=== PATIENT | female | born 1985 | race African-American/Black ===

== ENCOUNTER 2016-10-26 18:34 | Inpatient (IN) | payer OTHER ==
[2016-10-26 19:18] VITALS: BMI 23.7
--- NOTE | 2016-10-26 19:54 | HP ---
CIWA Score - CIWA Score Nausea/Vomitin Muscle Tremors: 3 Anxiety: 3 Agitation: 3 Paroxysmal Sweats: 2 Orientation: 0-Oriented Tacttile Disturbances: 2-Mild Itch/Numbness/Burn Auditory Disturbances: 2-Mild Harshness/Frighten Visual Disturbances: 2-Mild Sensitivity Headache: 2-Mild CIWA-Ar Total Score: 22 Admission ROS BHS - HPI Chief Complaint: i need help to stop drinking alcohol and cocaine Allergies/Adverse Reactions: Allergies Allergy/AdvReac Type Severity Reaction Status Date / Time No Known Allergies Allergy Verified 10/26/16 19:49 History of Present Illness: this 31 years old female with alcohol dependence and cocaine dependence,seeking detox,last treatment [facility] for 1year discharge 05/13 multiple admissions in detox nicotine dependence anxiety and depression longest period of sobriety 2 years Exam Limitations: No Limitations - Ebola screening Have you been sick,other than usual withdrawal symptoms: Yes - Review of Systems Constitutional: Loss of Appetite, Malaise, Night Sweats, Changes in sleep, Weakness, Unintentional Wgt. Loss EENT: reports: Nose Congestion Respiratory: reports: No Symptoms reported Cardiac: reports: No Symptoms Reported GI: reports: Diarrhea, Nausea, Vomiting, Abdominal cramping : reports: No Symptoms Reported Musculoskeletal: reports: Back Pain, Muscle Pain Integumentary: reports: Dryness Neuro: reports: Headache, Tremors Endocrine: reports: No Symptoms Reported Hematology: reports: No Symptoms Reported Psychiatric: reports: No Sypmtoms Reported, Judgement Intact, Mood/Affect Appropiate, Anxious, Depressed Patient History - Patient Medical History Hx Anemia: Yes (non compliance with iron) Hx Asthma: No Hx Chronic Obstructive Pulmonary Disease (COPD): No Hx Cancer: No Hx Cardiac Disorders: No Hx Congestive Heart Failure: No Hx Hypertension: No Hx Hypercholesterolemia: No Hx Pacemaker: No HX Cerebrovascular Accident: No Hx Seizures: No Hx Dementia: No Hx Diabetes: No Hx Gastrointestinal Disorders: No Hx Liver Disease: No Hx Genitourinary Disorders: No Hx Sexually Transmitted Disorders: No Hx Renal Disease (ESRD): No Hx Thyroid Disease: No Hx Human Immunodeficiency Virus (HIV): No (last 10/10 negative) Hx Hepatitis C: No Hx Depression: Yes (anxiety) Hx Suicide Attempt: No Hx Bipolar Disorder: No Hx Schizophrenia: No Other Medical History: no suicidal,o homicidal - Patient Surgical History Hx Section: Yes (x 3,last 2011) - PPD History Previous Implant?: Yes Documented Results: Negative w/o proof Implanted On Prior [facility] Admission?: No PPD to be Administered?: Yes - Reproductive History Patient is a Female of Child Bearing Age (11 -55 yrs old): Yes Last Menstrual Period: 10/21/16 Patient : No - Smoking Cessation Smoking history: Current every day smoker Have you smoked in the past 12 months: Yes If you are a former smoker, when did you quit?: 20 Cigars Per Day: 0 Hx Chewing Tobacco Use: No Initiated information on smoking cessation: Yes 'Breaking Loose' booklet given: 10/26/16 - Substance & Tx. History Hx Alcohol Use: Yes Hx Substance Use: Yes Substance Use Type: Alcohol, Cocaine Hx Substance Use Treatment: Yes ([facility] discharge 05/13) - Substances Abused Alcohol Route: Oral Frequency: Daily Amount used: 1pint of vodka/5 of 12 ozs of beer Age of first use: 13 Date of Last Use: 10/25/16 Cocaine Route: Smoking Frequency: 3-6 times per week Amount used: 100$ Age of first use: 22 Date of Last Use: 10/25/16 Family Disease History - Family Disease History Family History: Denies Admission Physical Exam [facility] - Vital Signs Vital Signs: Vital Signs - 24 hr 10/26/16 19:12 Temperature 97.8 F Pulse Rate 83 Respiratory 18 Rate Blood Pressure 135/73 - Physical General Appearance: Yes: Moderate Distress, Tremorous, Sweating, Anxious HEENTM: Yes: Normal ENT Inspection, FILEMON, Pharynx Normal Respiratory: Yes: Lungs Clear, Normal Breath Sounds, No Respiratory Distress Neck: Yes: Within Normal Limits, Supple, Trachea in good position Breast: Yes: Breast Exam Deferred Cardiology: Yes: Regular Rhythm, Regular Rate, S1, S2 Abdominal: Yes: Within Normal Limits, Normal Bowel Sounds, Non Tender, Flat, Soft Genitourinary: Yes: Within Normal Limits Back: Yes: Normal Inspection, Muscle Spasm Musculoskeletal: Yes: full range of Motion, Back pain, Muscle Pain Extremities: Yes: Tremors Neurological: Yes: Within Normal Limits, buffet waiter/waitress II-XII NML intact, Fully Oriented, Alert, Motor Strength 5/5 Integumentary: Yes: Dry Lymphatic: Yes: Within Normal Limits - Diagnostic (1) Alcohol dependence with uncomplicated withdrawal Current Visit: Yes Status: Acute (2) Cocaine dependence Current Visit: Yes Status: Acute (3) Anxiety and depression Current Visit: Yes Status: Acute (4) Nicotine dependence Current Visit: Yes Status: Acute (5) Anemia Current Visit: Yes Status: Acute (6) Vaginitis Current Visit: Yes Status: Acute Cleared for Admission [facility] - Detox or Rehab [facility] Level of Care: Medically Managed Detox Regimen/Protocol: Librium [facility] Breath Alcohol Content Breath Alcohol Content: 0 Urine Pregancy Test - Result Urine Test Results: Negative- NO Line Present Urine Drug Screen - Results Drug Screen Negative: No Urine Drug Screen Results: LUCA-Cocaine, BZO-Benzodiazepines
[2016-10-26] MEDS ORDERED: LOPERAMIDE HCL 2 MG CAPSULE PO PRN (21:18)
[2016-10-26] MEDS ORDERED: MENTHOL/PHENOL 1 EACH UD MM PRN (21:18)
[2016-10-26] MEDS ORDERED: hydrOXYzine PAMOATE 50 MG CAPSULE (FP) PO PRN (21:18)
[2016-10-26] MEDS ORDERED: ACETAMINOPHEN 325 MG TABLET (FP) PO PRN (21:18)
[2016-10-26] MEDS ORDERED: diphenhydrAMINE HCL 50 MG CAPSULE PO PRN (21:18)
[2016-10-26] MEDS ORDERED: MAG HYDROX/AL HYDROX/SIMETH 30 ML UNIT-DOSE CUP PO PRN (21:18)
[2016-10-26] MEDS ORDERED: chlordiazePOXIDE HCL 25 MG CAPSULE PO PRN (21:18)
[2016-10-26] MEDS ORDERED: guaiFENesin/D-METHORPHAN HB 10 ML UNIT-DOSE CUPS PO PRN (21:18)
[2016-10-26] MEDS ORDERED: MAGNESIUM CITRATE 300 ML BOTTLE PO PRN (21:18)
[2016-10-26] MEDS ORDERED: P-EPHED 60MG/TRIPROLIDI 2.5MG TABLET PO PRN (21:18)
[2016-10-26] MEDS: THIAMINE HCL 100 MG TABLET (FP) PO SCH (21:48)
[2016-10-26] MEDS: chlordiazePOXIDE HCL 25 MG CAPSULE PO SCH (22:22)
[2016-10-26 23:10] LABS: URINE APPEARANCE CLEAR; URINE BILIRUBIN NEGATIVE (NEGATIVE); URINE BLOOD NEGATIVE (NEGATIVE); URINE COLOR LTYELLOW; URINE GLUCOSE (UA) NEGATIVE (NEGATIVE); URINE KETONE NEGATIVE (NEGATIVE); URINE LEUK ESTERASE TRACE (NEGATIVE); URINE NITRITE NEGATIVE (NEGATIVE); URINE PROTEIN NEGATIVE (NEGATIVE); URINE UROBILINOGEN NEGATIVE mg/dL (0.2-1.0)
[2016-10-26 23:21] LABS: URINE MUCUS RARE; URINE RBC 1 /hpf (0-3); URINE WBC 2 /hpf (3-5)
[2016-10-27] MEDS: chlordiazePOXIDE HCL 25 MG CAPSULE PO SCH ×4 (05:42→22:41)
[2016-10-27] MEDS: IBUPROFEN 400 MG TABLET (FP) PO PRN (06:20)
--- NOTE | 2016-10-27 09:39 | CONSULT ---
[facility] Psychiatric Consult - Data Date of interview: 10/27/16 Admission source: [facility] Identifying data: This is 31 years old male with psychiatric hospitalization history intoxicated with: Alcohol, Cocaine and Nicotine Substance Abuse History: Smoking history: Current every day smoker. Have you smoked in the past 12 months: Yes. If you are a former smoker, when did you quit?: 20. Cigars Per Day: 0. Hx Chewing Tobacco Use: No. Initiated information on smoking cessation: Yes. 'Breaking Loose' booklet given: . - Substance & Tx. History. Hx Alcohol Use: Yes. Hx Substance Use: Yes. Substance Use Type: Alcohol, Cocaine. Hx Substance Use Treatment: Yes ( [facility] discharge 05/13). - Substances Abused. Alcohol. Route: Oral. Frequency: Daily. Amount used: 1pint of vodka/5 of 12 ozs of beer. Age of first use: 13. Date of Last Use: 10/25/16. Cocaine. Route: Smoking. Frequency: 3-6 times per week. Amount used: 100$. Age of first use: 22. Date of Last Use: 10/25/16 Medical History: Anemia history Psychiatric History: Patient reports unclear past psychiatric history, reports moist recent psychiatric admission on about 1 month ago at [facility] due to depression, denies suicidal history, patient minimizing past psychiatric history, reports taking prior to admission: Risperdal 1mg po bid. Benadryl 50mg po bid Physical/Sexual Abuse/Trauma History: Denies, unclear Additional Comment: Risperdal 1mg po bid. Benadryl 50mg po bid Mental Status Exam - Mental Status Exam Alert and Oriented to: Person Cognitive Function: Fair Patient Appearance: Unkempt Mood: Sad Affect: Flat Patient Behavior: Sedated Speech Pattern: Delayed Voice Loudness: Mildly Soft/Quiet Thought Process: Circumstantial Thought Disorder: Being Controlled Hallucinations: Denies Suicidal Ideation: Denies Homicidal Ideation: Denies Insight/Judgement: Fair Sleep: Difficulty falling asleep Appetite: Weight loss Muscle strength/Tone: Mild Hypotonicity Gait/Station: Shuffling Additional Comments: Risperdal 1mg po bid. Benadryl 50mg po bid Psychiatric Findings - Problem List ([place] 1, 2,3) (1) Alcohol dependence with uncomplicated withdrawal Current Visit: Yes Status: Acute (2) Anxiety and depression Current Visit: Yes Status: Acute (3) Cocaine dependence Current Visit: Yes Status: Acute (4) Nicotine dependence Current Visit: Yes Status: Acute (5) Drug-induced mood disorder Current Visit: Yes Status: Acute (6) Psychotic disorder Current Visit: Yes Status: Suspected - Initial Treatment Plan Initial Treatment Plan: Risperdal 1mg po bid. Benadryl 50mg po bid
[2016-10-27] MEDS ORDERED: FERROUS SO4 325 MG TABLET (FP) PO SCH (10:00)
[2016-10-27 10:01] LABS: MCH 21.8 pg (25.7-33.7); MCHC 29.4 g/dl (32.0-36.0); MEAN CELL VOLUME 73.9 fl (80-96); PLATELET COUNT 256 K/MM3 (134-434); WHITE BLOOD COUNT 4.1 K/mm3 (4.0-10.0)
[2016-10-27 10:09] LABS: ALBUMIN 3.5 g/dl (3.4-5.0); ANION GAP 7 (8-16); CALCIUM 8.7 mg/dL (8.5-10.1); CO2 22 mmol/L (21-32); GLUCOSE,RANDOM 115 mg/dL (74-106)
[2016-10-27 10:13] LABS: ALK PHOS 76 U/L (45-117); BILIRUBIN,TOTAL 0.2 mg/dL (0.2-1.0); CREATININE 0.6 mg/dL (0.55-1.02); SGOT/AST 22 U/L (15-37); SGPT/ALT 21 U/L (12-78); TOT PROT 7.3 g/dl (6.4-8.2)
[2016-10-27] MEDS ORDERED: FLUCONAZOLE 50 MG TABLET PO ONE (10:18)
--- NOTE | 2016-10-27 10:23 | PN ---
S CIWA - CIWA Score Nausea/Vomitin Muscle Tremors: 3 Anxiety: 3 Agitation: 3 Paroxysmal Sweats: 1-Minimal Palms Moist Orientation: 0-Oriented Tacttile Disturbances: 1-Very Mild Itch/Numbness Auditory Disturbances: 1-Very Mild Visual Disturbances: 1-Very Mild Sensitivity Headache: 2-Mild CIWA-Ar Total Score: 18 S Progress Note (SOAP) Subjective: ALERT,IRRITABLE,ANXIOUS,INTERRUPTED SLEEP,VAGINITIS YEAST INFECTION Objective: 10/27/16 10:22 Vital Signs Temperature 97.5 F L 10/27/16 09:24 Pulse Rate 83 10/27/16 09:24 Respiratory Rate 18 10/27/16 09:24 Blood Pressure 117/51 10/27/16 09:24 O2 Sat by Pulse Oximetry (%) Laboratory Last Values WBC 4.1 K/mm3 (4.0-10.0) 10/27/16 07:30 RBC 3.79 M/mm3 (3.60-5.2) 10/27/16 07:30 Hgb 8.2 GM/dL (10.7-15.3) L 10/27/16 07:30 Hct 28.0 % (32.4-45.2) L 10/27/16 07:30 MCV 73.9 fl (80-96) L 10/27/16 07:30 MCH 21.8 pg (25.7-33.7) L 10/27/16 07:30 MCHC 29.4 g/dl (32.0-36.0) L 10/27/16 07:30 RDW 19.0 % (11.6-15.6) H 10/27/16 07:30 Plt Count 256 K/MM3 (134-434) 10/27/16 07:30 MPV 8.0 fl (7.5-11.1) 10/27/16 07:30 Sodium 141 mmol/L (136-145) 10/27/16 07:30 Potassium 4.7 mmol/L (3.5-5.1) 10/27/16 07:30 Chloride 112 mmol/L (98-107) H 10/27/16 07:30 Carbon Dioxide 22 mmol/L (21-32) 10/27/16 07:30 Anion Gap 7 (8-16) L 10/27/16 07:30 BUN 12 mg/dL (7-18) 10/27/16 07:30 Creatinine 0.6 mg/dL (0.55-1.02) 10/27/16 07:30 Creat Clearance w eGFR > 60 (>60) 10/27/16 07:30 Random Glucose 115 mg/dL (74-106) H 10/27/16 07:30 Calcium 8.7 mg/dL (8.5-10.1) 10/27/16 07:30 Total Bilirubin 0.2 mg/dL (0.2-1.0) 10/27/16 07:30 AST 22 U/L (15-37) 10/27/16 07:30 ALT 21 U/L (12-78) 10/27/16 07:30 Alkaline Phosphatase 76 U/L (45-117) 10/27/16 07:30 Total Protein 7.3 g/dl (6.4-8.2) 10/27/16 07:30 Albumin 3.5 g/dl (3.4-5.0) 10/27/16 07:30 Urine Color Ltyellow 10/26/16 23:00 Urine Appearance Clear 10/26/16 23:00 Urine pH 8.0 (5.0-8.0) 10/26/16 23:00 Urine Protein Negative (NEGATIVE) 10/26/16 23:00 Urine Glucose (UA) Negative (NEGATIVE) 10/26/16 23:00 Urine Ketones Negative (NEGATIVE) 10/26/16 23:00 Urine Blood Negative (NEGATIVE) 10/26/16 23:00 Urine Nitrite Negative (NEGATIVE) 10/26/16 23:00 Urine Bilirubin Negative (NEGATIVE) 10/26/16 23:00 Urine Urobilinogen Negative mg/dL (0.2-1.0) 10/26/16 23:00 Ur Leukocyte Esterase Trace (NEGATIVE) 10/26/16 23:00 Urine RBC 1 /hpf (0-3) 10/26/16 23:00 Urine WBC 2 /hpf (3-5) 10/26/16 23:00 Ur Epithelial Cells Few /hpf (FEW) 10/26/16 23:00 Urine Mucus Rare 10/26/16 23:00 Assessment: 10/27/16 10:22 WITHDRAWAL SYMPTOM Plan: CONTINUE DETOX,HISTORY OF ANEMIA,FERROUS SULFATE 325 MG PO BID
[2016-10-27] MEDS: diphenhydrAMINE HCL 50 MG CAPSULE PO SCH ×2 (10:25→22:41)
[2016-10-27] MEDS: risperiDONE 1 MG TABLET (FP) PO SCH ×2 (10:26→22:41)
[2016-10-27] MEDS: NICOTINE 21 MG/24 HOURS TOPICAL PATCH TD SCH (10:26)
[2016-10-27] MEDS: PRENATAL VITAMINS W/ FOLIC ACID TABLET (FP) PO SCH (10:26)
[2016-10-27] MEDS: NICOTINE POLACRILEX 2 MG GUM BUC PRN ×3 (10:58→22:44)
--- NOTE | 2016-10-27 11:27 | EKG ---
Test Reason : Blood Pressure : / mmHG Vent. Rate : 068 BPM Atrial Rate : 068 BPM P-R Int : 126 ms QRS Dur : 084 ms QT Int : 392 ms P-R-T Axes : 008 058 049 degrees QTc Int : 416 ms NORMAL SINUS RHYTHM NORMAL ECG NO PREVIOUS ECGS AVAILABLE Confirmed by ERICA SHER MD ([id number]) on 10/27/2016 11:26:50 AM Referred By: Francis Gibson Confirmed By:ERICA SHER MD
[2016-10-27 11:29] LABS: HIV 1 & 2 AB NEGATIVE; HIV 1 AGp24 NEGATIVE
[2016-10-27] MEDS ORDERED: diphenhydrAMINE HCL 25 MG CAPSULE (FP) PO ONE (21:46)
[2016-10-27] MEDS: THIAMINE HCL 100 MG TABLET (FP) PO SCH (22:41)
[2016-10-27] MEDS: FERROUS SO4 325 MG TABLET (FP) PO SCH (22:41)
[2016-10-27] MEDS: TOLNAFTATE 1% CREAM 15 GM TUBE TP SCH (22:55)
[2016-10-28] MEDS: chlordiazePOXIDE HCL 25 MG CAPSULE PO SCH ×3 (05:06→17:43)
[2016-10-28] MEDS: IBUPROFEN 400 MG TABLET (FP) PO PRN (05:07)
[2016-10-28] MEDS: NICOTINE POLACRILEX 2 MG GUM BUC PRN ×2 (05:09→23:08)
[2016-10-28] MEDS: PRENATAL VITAMINS W/ FOLIC ACID TABLET (FP) PO SCH (10:31)
[2016-10-28] MEDS: diphenhydrAMINE HCL 50 MG CAPSULE PO SCH ×2 (10:31→22:55)
[2016-10-28] MEDS: FERROUS SO4 325 MG TABLET (FP) PO SCH ×2 (10:32→22:50)
[2016-10-28] MEDS: TOLNAFTATE 1% CREAM 15 GM TUBE TP SCH ×2 (10:32→22:55)
[2016-10-28] MEDS: risperiDONE 1 MG TABLET (FP) PO SCH ×2 (10:32→22:50)
[2016-10-28] MEDS: NICOTINE 21 MG/24 HOURS TOPICAL PATCH TD SCH (10:33)
--- NOTE | 2016-10-28 11:15 | PN ---
S CIWA - CIWA Score Nausea/Vomitin Muscle Tremors: 3 Anxiety: 3 Agitation: 2 Paroxysmal Sweats: No Perspiration Orientation: 0-Oriented Tacttile Disturbances: 1-Very Mild Itch/Numbness Auditory Disturbances: 1-Very Mild Visual Disturbances: 1-Very Mild Sensitivity Headache: 2-Mild CIWA-Ar Total Score: 16 S Progress Note (SOAP) Subjective: ALERT,IRRITABLE,ANXIOUS,INTERRUPTED SLEEP,TREMOR Objective: 10/28/16 11:14 Vital Signs Temperature 99.9 F H 10/28/16 10:00 Pulse Rate 96 H 10/28/16 10:00 Respiratory Rate 18 10/28/16 10:00 Blood Pressure 121/61 10/28/16 10:00 O2 Sat by Pulse Oximetry (%) Laboratory Last Values WBC 4.1 K/mm3 (4.0-10.0) 10/27/16 07:30 RBC 3.79 M/mm3 (3.60-5.2) 10/27/16 07:30 Hgb 8.2 GM/dL (10.7-15.3) L 10/27/16 07:30 Hct 28.0 % (32.4-45.2) L 10/27/16 07:30 MCV 73.9 fl (80-96) L 10/27/16 07:30 MCH 21.8 pg (25.7-33.7) L 10/27/16 07:30 MCHC 29.4 g/dl (32.0-36.0) L 10/27/16 07:30 RDW 19.0 % (11.6-15.6) H 10/27/16 07:30 Plt Count 256 K/MM3 (134-434) 10/27/16 07:30 MPV 8.0 fl (7.5-11.1) 10/27/16 07:30 Sodium 141 mmol/L (136-145) 10/27/16 07:30 Potassium 4.7 mmol/L (3.5-5.1) 10/27/16 07:30 Chloride 112 mmol/L (98-107) H 10/27/16 07:30 Carbon Dioxide 22 mmol/L (21-32) 10/27/16 07:30 Anion Gap 7 (8-16) L 10/27/16 07:30 BUN 12 mg/dL (7-18) 10/27/16 07:30 Creatinine 0.6 mg/dL (0.55-1.02) 10/27/16 07:30 Creat Clearance w eGFR > 60 (>60) 10/27/16 07:30 Random Glucose 115 mg/dL (74-106) H 10/27/16 07:30 Calcium 8.7 mg/dL (8.5-10.1) 10/27/16 07:30 Total Bilirubin 0.2 mg/dL (0.2-1.0) 10/27/16 07:30 AST 22 U/L (15-37) 10/27/16 07:30 ALT 21 U/L (12-78) 10/27/16 07:30 Alkaline Phosphatase 76 U/L (45-117) 10/27/16 07:30 Total Protein 7.3 g/dl (6.4-8.2) 10/27/16 07:30 Albumin 3.5 g/dl (3.4-5.0) 10/27/16 07:30 Urine Color Ltyellow 10/26/16 23:00 Urine Appearance Clear 10/26/16 23:00 Urine pH 8.0 (5.0-8.0) 10/26/16 23:00 Ur Specific [place] 1.015 (1.005-1.025) 10/26/16 23:00 Urine Protein Negative (NEGATIVE) 10/26/16 23:00 Urine Glucose (UA) Negative (NEGATIVE) 10/26/16 23:00 Urine Ketones Negative (NEGATIVE) 10/26/16 23:00 Urine Blood Negative (NEGATIVE) 10/26/16 23:00 Urine Nitrite Negative (NEGATIVE) 10/26/16 23:00 Urine Bilirubin Negative (NEGATIVE) 10/26/16 23:00 Urine Urobilinogen Negative mg/dL (0.2-1.0) 10/26/16 23:00 Ur Leukocyte Esterase Trace (NEGATIVE) 10/26/16 23:00 Urine RBC 1 /hpf (0-3) 10/26/16 23:00 Urine WBC 2 /hpf (3-5) 10/26/16 23:00 Ur Epithelial Cells Few /hpf (FEW) 10/26/16 23:00 Urine Mucus Rare 10/26/16 23:00 RPR Titer Nonreactive (NONREACTIVE) 10/27/16 07:30 HIV 1&2 Antibody Screen Negative 10/27/16 07:30 HIV P24 Antigen Negative 10/27/16 07:30 Assessment: 10/28/16 11:15 WITHDRAWAL SYMPTOM Plan: CONTINUE DETOX,FASTING GLUCOSE
[2016-10-28] MEDS: MAGNESIUM HYDROX 2400MG/30ML ORAL SUSPENSION 30 ML CUP PO PRN (20:43)
[2016-10-28] MEDS: THIAMINE HCL 100 MG TABLET (FP) PO SCH (22:50)
[2016-10-28] MEDS: chlordiazePOXIDE 5 MG CAPSULE PO SCH (22:50)
[2016-10-29] MEDS: chlordiazePOXIDE 5 MG CAPSULE PO SCH ×3 (05:36→17:24)
[2016-10-29] MEDS: NICOTINE POLACRILEX 2 MG GUM BUC PRN ×5 (05:39→20:41)
[2016-10-29] MEDS: IBUPROFEN 400 MG TABLET (FP) PO PRN ×2 (05:39→14:20)
[2016-10-29] MEDS: risperiDONE 1 MG TABLET (FP) PO SCH ×2 (10:18→22:19)
[2016-10-29] MEDS: NICOTINE 21 MG/24 HOURS TOPICAL PATCH TD SCH (10:19)
[2016-10-29] MEDS: FERROUS SO4 325 MG TABLET (FP) PO SCH ×2 (10:19→22:19)
[2016-10-29] MEDS: PRENATAL VITAMINS W/ FOLIC ACID TABLET (FP) PO SCH (10:20)
[2016-10-29] MEDS: TOLNAFTATE 1% CREAM 15 GM TUBE TP SCH ×2 (10:21→22:22)
[2016-10-29] MEDS: diphenhydrAMINE HCL 50 MG CAPSULE PO SCH ×2 (10:21→22:19)
[2016-10-29] MEDS: MAGNESIUM HYDROX 2400MG/30ML ORAL SUSPENSION 30 ML CUP PO PRN (10:22)
--- NOTE | 2016-10-29 11:41 | PN ---
S Progress Note (SOAP) Subjective: ALERT,IRRITABLE,ANXIOUS,INTERRUPTED SLEEP Objective: 10/29/16 11:40 Vital Signs Temperature 97.3 F L 10/29/16 10:02 Pulse Rate 88 10/29/16 10:02 Respiratory Rate 16 10/29/16 10:02 Blood Pressure 117/55 10/29/16 10:02 O2 Sat by Pulse Oximetry (%) Assessment: 10/29/16 11:40 WITHDRAWAL SYMPTOM Plan: CONTINUE DETOX,DISCHARGE IN AM
[2016-10-29] MEDS ORDERED: diphenhydrAMINE HCL 25 MG CAPSULE (FP) PO ONE (21:36)
[2016-10-29] MEDS: chlordiazePOXIDE HCL 10 MG CAPSULE PO SCH (22:19)
[2016-10-29] MEDS: THIAMINE HCL 100 MG TABLET (FP) PO SCH (23:10)
[2016-10-30] MEDS: chlordiazePOXIDE HCL 10 MG CAPSULE PO SCH (05:25)
[2016-10-30] MEDS: NICOTINE POLACRILEX 2 MG GUM BUC PRN ×2 (05:25→08:01)
[2016-10-30] MEDS: IBUPROFEN 400 MG TABLET (FP) PO PRN (05:25)
[2016-10-30 06:25] VITALS: BP 109/65; PULSE 79; TEMP 97.3
--- NOTE | 2016-10-30 08:07 | PN ---
S Progress Note (SOAP) Subjective: ALERT,NO COMPLAINT Objective: 10/30/16 08:05 Vital Signs Temperature 97.3 F L 10/30/16 06:24 Pulse Rate 79 10/30/16 06:24 Respiratory Rate 18 10/30/16 06:24 Blood Pressure 109/65 10/30/16 06:24 O2 Sat by Pulse Oximetry (%) DETOX COMPLETED Assessment: 10/30/16 08:06 NO WITHDRAWAL SYMPTOM Plan: DISCHARGE TODAY,FOLLOW UP WITH AFTER CARE PROGRAM ARRANGEMENT
--- NOTE | 2016-10-30 08:15 | DS ---
[facility] Detox Discharge Summary Admission Date: 10/26/16 Discharge Date: 10/30/16 - History Present History: Alcohol Dependence, Cocaine Dependence Pertinent Past History: NICOTINE DEPENDENCE ANEMIA VAGINITIS WEIGHT LOSS [facility]A PEDIS - Physical Exam Results Vital Signs: Vital Signs Temperature 97.3 F L 10/30/16 06:24 Pulse Rate 79 10/30/16 06:24 Respiratory Rate 18 10/30/16 06:24 Blood Pressure 109/65 10/30/16 06:24 O2 Sat by Pulse Oximetry (%) Pertinent Admission Physical Exam Findings: WITHDRAWAL SYMPTOM - Treatment Hospital Course: Detox Protocol Followed, Detoxed Safely, Responded well, Discharged Condition Good, Rehab Referral Accepted Patient has Accepted a Rehab Referral to: [facility] - Medication Discharge Medications: Ambulatory Orders Diphenhydramine HCl [Benadryl -] 25 mg PO DAILY 10/26/16 Ferrous Sulfate [Feosol] 325 mg PO DAILY 10/26/16 Ferrous Sulfate [Feosol] 325 mg PO BID #[id number] tab 10/30/16 - Diagnosis (1) Alcohol dependence with uncomplicated withdrawal Current Visit: Yes Status: Acute (2) Cocaine dependence Current Visit: Yes Status: Acute (3) Anxiety and depression Current Visit: Yes Status: Acute (4) Nicotine dependence Current Visit: Yes Status: Acute (5) Anemia Current Visit: Yes Status: Acute (6) Vaginitis Current Visit: Yes Status: Acute (7) Weight loss Current Visit: Yes Status: Acute - AMA Did Patient Leave Against Medical Advice: No
[2016-10-30] MEDS ORDERED: diphenhydrAMINE HCL 25 MG CAPSULE (FP) PO ONE (08:39)
[2016-10-30] MEDS: FERROUS SO4 325 MG TABLET (FP) PO SCH (09:14)
[2016-10-30] MEDS: diphenhydrAMINE HCL 50 MG CAPSULE PO SCH (09:15)
[2016-10-30] MEDS: TOLNAFTATE 1% CREAM 15 GM TUBE TP SCH (09:15)
[2016-10-30] MEDS: NICOTINE 21 MG/24 HOURS TOPICAL PATCH TD SCH (09:15)
[2016-10-30] MEDS: risperiDONE 1 MG TABLET (FP) PO SCH (09:15)
[2016-10-30] MEDS: PRENATAL VITAMINS W/ FOLIC ACID TABLET (FP) PO SCH (09:15)
== END 2016-10-30 09:46 | disposition home or self-care (01) | DRG 897 ==
LOC: YASAS 18:34 → Y6N 20:07
PROVIDERS: ADMIT Internal Medicine Addiction Medicine; ATTEND Internal Medicine Addiction Medicine
PROC: HZ2ZZZZ Detoxification Services for Substance Abuse Treatment (ICD-10-PCS; principal; 2016-10-26)
DX: F10.230 Alcohol dependence with withdrawal, uncomplicated (principal); F14.20 Cocaine dependence, uncomplicated; F23 Brief psychotic disorder; F17.210 Nicotine dependence, cigarettes, uncomplicated; F41.9 Anxiety disorder, unspecified; F32.9 Major depressive disorder, single episode, unspecified; F19.24 Other psychoactive substance dependence with psychoactive substance-induced mood disorder; D64.9 Anemia, unspecified; B37.3 Candidiasis of vulva and vagina; N76.0 Acute vaginitis; Z91.14 Patient's other noncompliance with medication regimen
CPT/HCPCS: 36415; 80053; 81003; 81015; 82947; 85027; 86593; 87389; 93005; 93010; J2794